=== PATIENT | male | born 1955 | race Two or more races ===

== ENCOUNTER 2023-01-06 10:24 | Emergency (ER) | payer OTHER ==
[~2023-01-06] VITALS: Ht 170.2 cm; Wt 57.2 kg
[2023-01-06] MEDS ORDERED: METFORMIN HCL500 M3 (13:12)
[2023-01-06] MEDS ORDERED: TAMS0.4C (13:12)
[2023-01-06] MEDS ORDERED: SIMVASTATIN80 MG (13:13)
[2023-01-06] MEDS ORDERED: ECOTRIN81 MG (13:13)
[2023-01-06] MEDS ORDERED: CARVEDILOL ER40 MG (13:13)
[2023-01-06] MEDS ORDERED: PERCOCET 5-3251 EACH (13:13)
== END 2023-01-06 21:37 | disposition designated cancer center or children's hospital (05) ==
LOC: ER 10:24
DX: K60.5 Anorectal fistula (principal); Z85.46 Personal history of malignant neoplasm of prostate; I10 Essential (primary) hypertension; E78.00 Pure hypercholesterolemia, unspecified; Z95.0 Presence of cardiac pacemaker; E11.9 Type 2 diabetes mellitus without complications; Z20.822 Contact with and (suspected) exposure to COVID-19
CPT/HCPCS: 36415; 96365; 96366; 96372; 99285; J1885; J2270; J2543; J7030